=== PATIENT | male | born 1985 | race Caucasian/White ===

== ENCOUNTER 2016-08-29 22:21 | Emergency (ER) | payer MEDICAID ==
[~2016-08-29] VITALS: Ht 175.3 cm; Wt 83.9 kg
[2016-08-29 22:26] VITALS: BP_SYST 140; BP_SYST 150; BP_DIAS 90
--- NOTE | 2016-08-29 22:33 | NUR ---
PT TAKEN TO BED 5
--- NOTE | 2016-08-29 22:37 | NUR ---
PA STUDENT EVALUATING PATIENT AT BEDSIDE.
--- NOTE | 2016-08-29 22:41 | NUR ---
30Y M BIB MOM C/O OF LEFT FACIAL PAIN, HEADACHE, EYE PAIN AND REDNESS ALL DAY. PAIN IS 7/10 IN SCALE.
--- NOTE | 2016-08-29 22:54 | NUR ---
Dr. Mendez evaluating patient at bedside.
[2016-08-29] MEDS ORDERED: KETOROLAC 60 MG/2 ML VIAL IM ONE (23:00)
[2016-08-29] MEDS ORDERED: oxyCODONE/APAP 5/325 MG 1 TAB TAB PO ONE (23:00)
[2016-08-29] MEDS ORDERED: SUMAtriptan 50 MG TAB PO ONE (23:00)
--- NOTE | 2016-08-30 00:15 | NUR ---
Patient discharged with v/s stable. Written and verbal after care instructions given and explained. Patient alert, oriented and verbalized understanding of instructions. Ambulatory with steady gait. All questions addressed prior to discharge. ID band removed. Patient advised to follow up with PMD. Rx of SUMATRIPTAN SUCCINATE given. Patient educated on indication of medication including possible reaction and side effects. Opportunity to ask questions provided and answered.
[2016-08-30 00:19] VITALS: BP 127/83
== END 2016-08-30 00:15 | disposition home or self-care (01) ==
LOC: MED 22:21
DX: G44.009 Cluster headache syndrome, unspecified, not intractable (principal); Z71.6 Tobacco abuse counseling
CPT/HCPCS: 96372; 99283; J1885